=== PATIENT | female | born 1985 | race Caucasian/White ===

== ENCOUNTER → 2016-08-26 | Outpatient (CLI) | payer BC ==
--- NOTE | 2016-08-26 13:21 | PN ---
DATE OF SERVICE: 08/26/2016 31-year-old lady who has been in the sleep center for treatment of narcolepsy. Patient continued to have significant sleep symptoms of sleepiness. [place] Sleepiness Scale increased to 18. At the same time amount of episodes of cataplexy significantly less than before about 2 times per month without medical treatment for cataplexy or sleepiness at the present time. Her sleep schedule is from around 10:00 p.m. until 6:30 a.m. She has episodes of snoring during sleep and has episodes of nocturia up to 1 or 2 times per night. Recently, the patient had back surgery on 07/22/2016. MEDICATIONS: 1. Methylprednisolone. 2. Cyclobenzaprine. 3. Tramadol. 4. Tylenol. [place] Sleepiness Scale is 18. During physical exam, the patient in no distress. VITAL SIGNS: BP 134/76, HR 98, RR 16. Height 5 foot 7. Weight 214. Body mass index 33.5. Temperature 97.2. Oxygen saturation at room air 98%. HEENT: PERRLA, EOMI moderately significantly low position of soft palate. LUNGS: Clear. HEART: S1, S2 regular. ABDOMEN: Obese, soft, nontender. EXTREMITIES: No edema. No focal deficits. IMPRESSION: 1. Narcolepsy with cataplexy. 2. Mild obesity. Patient increased her weight about 4 pounds since previous visit. 3. Status post recent back surgery. 4. Nocturia. PLAN: 1. Provigil with adjustment dose to prevent any excessive sleepiness, previously patient was on treatment with Ritalin but Ritalin increased her heart rate significantly. 2. Watching and losing weight. 3. Home sleep apnea test to check for any abnormalities of respiration. 4. No driving if feeling any sleepiness. 5. Sleep hygiene with regular time in bed for at least 8 hours. 6. Daytime naps permitted. Thank you very much for allowing me to participate in the management of your patient. Sincerely, Delfino Sparrow MD, PhD, FAASM. Diplomat of [place] [employer], Sleep Medicine Board by [employer] Safety Scientist of [facility] [place]

== ENCOUNTER → 2017-02-24 | Outpatient (CLI) | payer MEDICARE ==
--- NOTE | 2017-02-24 13:55 | PN ---
DATE OF SERVICE: 02/24/2017 A 32-year-old lady who has been followed in the Sleep Center for treatment of narcolepsy with cataplexy. Presently patient feels better, so episodes of cataplexy mostly related only to significant stress of 5 to 10 times per month although before she had it several times a day. She continues to do exercise training. She stopped using Ritalin and presently she is taking 3/4 of 100 mg of modafinil during the day and that partially includes she feels better but still feels sleepiness during the day. [place] sleepiness scale significantly increased to 17. Her sleep schedule is about the same as during previous exam from 10 p.m. to 6:30 a.m. Sometimes she has episodes of snoring. One to two times per night she has episodes of nocturia. Not any episodes of suicidal thinking for the last 2 years, since she tried ( ). Presently, her medications are Valacyclovir 500 mg once a day and modafinil 3/4 of tablet of 100 mg. During physical exam, patient is in no distress. BP 116/74, HR 69, RR 16, height 67, weight 212.4, BMP 33.2, temp 97.4, oxygen saturation at room air 99%. OROPHARYNX: Moderately low position of soft palate. ABDOMEN: Slightly obese. NECK: Supple, no JVD. Thyroid is not palpable. LUNGS: Clear to percussion and to auscultation. Good air exchange. No wheezing or rhonchi. HEART: S1, S2 regular. No murmur, gallops or rubs. EXTREMITIES: No clubbing or cyanosis. LINE PREP COOK: Awake, alert and oriented x3. Cranial nerves 2 to 7 intact. There is no fasciculation or atrophy noted. No focal deficits observed. IMPRESSION: 1. Narcolepsy with cataplexy. 2. Occasional mild snoring with episodes of nocturia. 3. Mild obesity. 4. Status post back surgery. 5. Genital herpes. PLAN: 1. Continue treatment with modafinil. Patient increased dose from 3/4 of tablet to 100 mg. 2. Sleep hygiene with regular time in bed for at least 8 hours. 3. Daytime naps permitted. 4. No driving if feeling any sleepiness. Thank you for allowing me to participate in the management of your patient. Sincerely, Delfino Sparrow MD, PhD, FAASM Diplomat of [place] [employer], Sleep Medicine Board by [employer] [employer] [employer] Mixing Machine Operator of [facility] [place]. [place]
== END ==
LOC: SLEEP 09:59
PROVIDERS: ATTEND Internal Medicine
DX: R06.83 Snoring (principal); E66.9 Obesity, unspecified; G47.419 Narcolepsy without cataplexy; A60.00 Herpesviral infection of urogenital system, unspecified; Z98.890 Other specified postprocedural states; Z79.899 Other long term (current) drug therapy